=== PATIENT | male | born 1945 | race Hispanic/Latino ===

== ENCOUNTER 2018-09-11 08:33 | Emergency (ER) | payer MEDICARE ==
[~2018-09-11] VITALS: Ht 167.6 cm; Wt 77.1 kg
--- NOTE | 2018-09-11 10:22 | Diagnostic Imaging Report ---
CT BRAIN WO HISTORY: Fall COMPARISON: None. Technique: Noncontrast axial scans were obtained from skull base to the vertex. Coronal and sagittal reconstructions obtained from the axial data. One or more of the following dose reduction techniques were used: Automated exposure control, adjustment of the mA and/or kV according to patient size, and/or utilization of iterative reconstruction technique. DISCUSSION: Scalp/Skull: Right frontal/pterional craniotomy changes are present. Otherwise, no calvarial fracture is seen. Brain sulci: Mildly prominent. Ventricles: Compensatory dilatation. Sellar/Suprasellar region: The sella is expanded. Approximately 2.6 cm (sagittal dimension) bilobed sellar/suprasellar mass exerts mass effect on the optic chiasm and third ventricle floor. Extra-axial spaces: No additional masses or fluid collections. Carotid siphon calcifications are present. Parenchyma: Focal areas of right anterior temporal and right posterior orbitofrontal encephalomalacia may be from remote trauma. Mild bilateral deep white matter hypodensity is likely chronic microvascular ischemic change. A few small juxtacortical calcifications throughout the left cerebral hemisphere and in the right gino may be from remote infection or inflammation. Focal encephalomalacia in the left superior frontal gyrus may be from remote infarct. Otherwise, no additional masses, hemorrhage, or large vascular territory acute infarct. Dural sinuses: No abnormal densities. Skull base: Intact. Incidental findings: None. IMPRESSION: 1. Approximately 2.6 cm bilobed sellar/suprasellar mass exerts mass effect on the optic chiasm and third ventricle floor. 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 Associated right frontal/pterional craniotomy changes are present. These findings can be correlated with surgical history. 2. Otherwise, no acute intracranial abnormalities. 3. Mild supratentorial chronic microvascular ischemic change. Mild generalized cerebral volume loss. 4. Right anterior temporal and right posterior orbitofrontal encephalomalacia may be from remote trauma. 5. A few scattered small parenchymal calcifications throughout the left cerebral hemisphere and right gino may be from remote infection or inflammation. Associated focal left superior frontal gyrus encephalomalacia may be from remote infarct. Signed by: Dr. Gideon Gomez M.D. on 09/11/2018 10:19 AM
--- NOTE | 2018-09-11 10:35 | Diagnostic Imaging Report ---
CT CERVICAL SPINE WO, CT THORACIC SPINE WO HISTORY: Fall COMPARISON: Concurrent head CT TECHNIQUE: CT of the cervical and thoracic spine without contrast. Sagittal and coronal reformations were created. One or more of the following dose reduction techniques were used: Automated exposure control, adjustment of the mA and/or kV according to patient size, and/or utilization of iterative reconstruction technique. FINDINGS: Bone demineralization limits osseous evaluation. Cervical lordosis is straightened. Thoracic kyphosis is preserved. There is no scoliosis or subluxation. No definite acute fracture or compression deformity is seen. The craniocervical junction is intact. No gross spinal canal masses are seen. The paravertebral and paraspinal soft tissues are unremarkable. Mild to moderate multilevel spondylosis is present. Multilevel prominent marginal osteophytes are present with relatively preserved disc spaces; this suggests diffuse idiopathic skeletal hyperostosis Mild dependent atelectasis is present. A few calcified paratracheal lymph nodes suggest remote granulomatous disease. Hypodense liver suggests fatty infiltration. IVC filter is in place. IMPRESSION: 1. No acute osseous abnormalities. 2. Mild to moderate multilevel spondylosis with diffuse idiopathic skeletal hyperostosis. Signed by: Dr. Gideon Gomez M.D. on 09/11/2018 10:31 AM
--- NOTE | 2018-09-11 10:35 | NUR ---
DR. ELLIOTT ASSESSING PT IN TRIAGE AT THIS TIME. PENDING RESULTS OF ALL STUDIES AT THIS TIME AND PT AWARE OF THIS.
[2018-09-11] MEDS ORDERED: KETOROLAC TROMETHAMINE 10 MG TAB PO ONE (10:45)
[2018-09-11] MEDS ORDERED: HYDROCODONE/APAP 5MG-325MG TAB PO ONE (10:45)
[2018-09-11 11:42] VITALS: BP 145/83
[2018-09-11] MEDS ORDERED: HYDROMORPHONE 2MG/ML 2 MG/ML ML IM ONE ×2 (12:15→14:00)
[2018-09-11] MEDS ORDERED: ONDANSETRON HCL INJ 2MG/ML 2ML 2 MG/ML VIAL ONE (12:24)
== END 2018-09-11 11:35 | disposition home or self-care (01) ==
LOC: ER 08:33
DX: M54.2 Cervicalgia (principal); S00.83XA Contusion of other part of head, initial encounter; M54.6 Pain in thoracic spine; S23.3XXA Sprain of ligaments of thoracic spine, initial encounter; S33.5XXA Sprain of ligaments of lumbar spine, initial encounter; W17.89XA Other fall from one level to another, initial encounter; Y92.008 Other place in unspecified non-institutional (private) residence as the place of occurrence of the external cause
CPT/HCPCS: 70450; 72125; 72128; 99283; J1170; J2405

== ENCOUNTER 2022-12-09 12:04 | Emergency (ER) | payer MEDICARE ==
[~2022-12-09] VITALS: Ht 167.6 cm; Wt 77.1 kg
[2022-12-09 14:03] LABS: BASOPHILS # (AUTO) 0.1 (0.0-0.1); BASOPHILS % 0.5 % (0.0-1.0); EOSINOPHILS # (AUTO) 0.1 (0.0-0.4); EOSINOPHILS % 0.5 % (0.0-6.0); HEMOGLOBIN 16.1 g/dL (14.0-18.0); LYMPHOCYTES # (AUTO) 2.1 (1.0-3.2); LYMPHOCYTES % 23.3 % (18.0-39.1); MEAN CORPUSCULAR HEMOGLOBIN 29.2 pg (28-32); MEAN CORPUSCULAR HGB CONC 34.3 g/dL (31-35); MEAN CORPUSCULAR VOLUME 85.3 fL (81-99); MONOCYTES # (AUTO) 0.7 (0.2-0.8); MONOCYTES % 7.5 % (4.4-11.3); NEUTROPHILS # (AUTO) 6.2 (2.1-6.9); PLATELET COUNT 246 x10e3/uL (140-360); RED BLOOD COUNT 5.51 x10e6/uL (4.3-5.7); RED CELL DISTRIBUTION WIDTH 12.9 % (11.7-14.4)
[2022-12-09 14:20] LABS: INR 0.97; PARTIAL THROMBOPLASTIN TIME 28.2 seconds (23.8-35.5); PROTHROMBIN TIME 13.4 seconds (11.9-14.5)
[2022-12-09 14:45] LABS: ALANINE AMINOTRANSFERASE 25 IU/L (0-55); ALBUMIN/GLOBULIN RATIO 0.9 (0.8-2.0); ALKALINE PHOSPHATASE 93 IU/L (40-150); ANION GAP 17.8 mmol/L (8-16); BLOOD UREA NITROGEN 13 mg/dL (7-26); BUN/CREATININE RATIO 11 (6-25); CALCIUM 10.2 mg/dL (8.4-10.2); CARBON DIOXIDE 20 mmol/L (22-29); CHLORIDE 99 mmol/L (98-107); CREATININE, SERUM 1.21 mg/dL (0.72-1.25); GLUCOSE 395 mg/dL (74-118); POTASSIUM 3.8 mmol/L (3.5-5.1); SODIUM 133 mmol/L (136-145)
[2022-12-09 15:15] VITALS: BP 139/78; PULSE 74; RESP 18; O2SAT 99
== END 2022-12-09 15:16 | disposition short-term general hospital (02) ==
LOC: ER 12:09
DX: S06.5XAA Traumatic subdural hemorrhage with loss of consciousness status unknown, initial encounter (principal); E11.9 Type 2 diabetes mellitus without complications; E03.9 Hypothyroidism, unspecified; D33.2 Benign neoplasm of brain, unspecified; W19.XXXA Unspecified fall, initial encounter; Y92.009 Unspecified place in unspecified non-institutional (private) residence as the place of occurrence of the external cause; Z86.718 Personal history of other venous thrombosis and embolism; Z20.822 Contact with and (suspected) exposure to COVID-19
CPT/HCPCS: 0223U; 36415; 70450; 70486; 71045; 72125; 73110; 73130; 80053; 84484; 85025; 85610; 85730; 93005; 99284